=== PATIENT | female | born 1940 | race Two or more races ===

== ENCOUNTER → 2025-04-06 | Outpatient (CLI) | payer MEDICARE, BC, SELFPAY ==
[2025-04-06 10:32] LABS: Glucose Estimated Average 148 mg/dL (80-131); Hemoglobin A1C 6.8 % Hgb (4.8-6.0)
== END | disposition home or self-care (01) ==
LOC: COPL 08:47
PROVIDERS: PCP Family Medicine; Referring Provider Family Medicine; Visit Provider Family Medicine
DX: E11.65 Type 2 diabetes mellitus with hyperglycemia (principal)
CPT/HCPCS: 36415; 83036

== ENCOUNTER → 2025-04-08 | Outpatient (CLI) | payer MEDICARE, BC, SELFPAY ==
--- NOTE | 2025-04-08 10:30 | XR_ITS ---
Examination: CT brain head without contrast. 2-D sagittal coronal reconstructions Date and time of exam:April 08, 2025 1026 hours COMPARISON: January 13, 2024 INDICATIONS: Headache dizziness beginning several months ago CTDI: vol (mGy):54.7 DLP: (mGycm):1020 Technique: Multiple CT axial sections of the brain have been obtained, 5 mm slice thickness. Contrast has not been administered. 2-D sagittal, coronal reconstructions have been obtained Low dose protocols were performed. One or more of the following dose reduction techniques were used; automated exposure control, adjustment of the mA and/or KV according to patient size, use of iterative reconstruction technique. Findings: No significant ventricular enlargement. Intra-axial or extra-axial hemorrhage density is not seen. No mass effect or midline shift Basal cisterns are not remarkable. Fourth ventricle is midline. Cranial vault intact. Impression: Negative for acute hemorrhage, mass effect or midline shift Advise clinical correlation follow-up accordingly
== END | disposition home or self-care (01) ==
LOC: CCTX 09:33
PROVIDERS: PCP Family Medicine; Referring Provider Psychiatry & Neurology Neurology; Visit Provider Psychiatry & Neurology Neurology
DX: R51.9 Headache, unspecified (principal); R42 Dizziness and giddiness; F07.81 Postconcussional syndrome
CPT/HCPCS: 70450

== ENCOUNTER → 2025-05-04 | Outpatient (CLI) | payer MEDICARE, BC, SELFPAY ==
--- NOTE | 2025-05-04 10:45 | XR_ITS ---
Examination: Screening digital mammography, bilateral Computer aided detection 3-D breast Tomosynthesis, bilateral Date and time of exam: May 04, 2025 1046 hours Compared to mammograms dating to November 09, 2009 Indication: Screening Technique: Nonmagnified MLO, CC views of the breasts to been obtained, reconstructed from 3-D Tomosynthesis images. R2 computer aided detection program utilized for evaluation of suspicious masses and/or abnormal calcifications. 3-D Tomosynthesis images obtained. Findings: Scattered areas of fibroglandular density Skin lesion inner left breast Benign calcifications. No interval suspicious masses Impression: BI-RADS category II: Benign Findings. Recommend 1 year follow-up mammogram.
== END | disposition home or self-care (01) ==
LOC: CDIM 10:26
PROVIDERS: Referring Provider Family Medicine; Visit Provider Family Medicine
DX: Z12.31 Encounter for screening mammogram for malignant neoplasm of breast (principal); R92.323 Mammographic fibroglandular density, bilateral breasts; L98.8 Other specified disorders of the skin and subcutaneous tissue; R92.1 Mammographic calcification found on diagnostic imaging of breast
CPT/HCPCS: 77063; 77067

== ENCOUNTER 2025-06-15 11:38 | Emergency (ER) | payer MEDICARE, BC, SELFPAY ==
[2025-06-15 11:47] VITALS: BP 165/77; PULSE 62; PULSE 85; RESP 16; RESP 18; TEMP 36.9; O2SAT 97; O2SAT 98; BMI 31.3
--- NOTE | 2025-06-15 13:44 | PD.EDRME ---
Rapid Medical Screening Exam RME Arrival date/time: 06/15/25 11:38 Chief Complaint: General Adult/Misc Complain Vital signs: Vital Signs Temperature 98.5 F 06/15/25 11:47 Pulse Rate 62 06/15/25 11:47 Respiratory Rate 18 06/15/25 11:47 Blood Pressure 165/77 H 06/15/25 11:47 Pulse Oximetry (%) 97 06/15/25 11:47 Oxygen Delivery Method Room Air 06/15/25 11:47 Pulse ox room air is 97%. Vital signs reviewed by provider: Yes RME Narrative: 84-year-old female sent by Dr. Guzman due to a headache with left and right ankle swelling. Pressure to her chest but no odell chest pain that radiates to her back. Also complains of a headache. This has been intermittent x 1 week.
--- NOTE | 2025-06-15 13:56 | EKG_ITS ---
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
[2025-06-15 14:20] LABS: Collection Type, Urine Clean Catch; Squamous Epithelial Cell,Urine 0 /hpf (0-5); WBC,Urine 0 /hpf (0-5)
[2025-06-15 14:21] LABS: Basophils # (Auto) 0.0 Thou/mm3 (0.0-0.2); Basophils % (Auto) 1 % (0-2.5); Eosinophils # (Auto) 0.2 Thou/mm3 (0.0-0.5); Eosinophils % (Auto) 2 % (0-10); Hematocrit 38.5 % (36.0-46.0); Hemoglobin 12.8 g/dL (12.0-16.0); Immature Granulocytes Auto 0.01 Thou/mm3 (0.00-0.00); Lymphocytes # (Auto) 2.5 Thou/mm3 (1.0-4.8); Lymphocytes % (Auto) 36 % (10-50); Mean Corpuscular HGB Conc 33.2 g/dl (31.0-37.0); Mean Corpuscular Hemoglobin 30.0 pg (25.0-35.0); Mean Corpuscular Volume 90 fL (80-100); Monocytes # (Auto) 0.4 Thou/mm3 (0.0-0.8); Monocytes % (Auto) 6 % (0-12); Neutrophils # (Auto) 3.9 Thou/mm3 (1.8-7.7); Neutrophils % (Auto) 55 % (37-80); Nucleated Red Blood Cell # 0.00 Thou/mm3 (0.00-0.00); Nucleated Red Blood Cell % 0 /100 WBC (0); Platelet Count 247 Thou/mm3 (140-440); RDW Standard Deviation 44.9 fL (36.4-46.3); Red Blood Count 4.27 Miln/mm3 (4.00-5.20); White Blood Count 7.0 Thou/mm3 (3.6-11.0)
[2025-06-15 14:24] LABS: Bilirubin,Urine Negative (Negative); Blood,Urine Negative (Negative); Clarity,Urine Clear (Clear/Hazy); Color,Urine Colorless (Lt Yel-Yel); Glucose, Urine Negative (Negative); Ketones,Urine Trace (Negative); Leukocyte Esterase,Urine Negative (Negative); Nitrite,Urine Negative (Negative); PH,Urine 7.0 (5.0-7.0); Protein,Urine Negative (Neg - Trace); RBC,Urine < 1 /hpf (0-3); Specific Gravity,Urine 1.012 (1.001-1.035); Urobilinogen,Urine Negative mg/dL (0.0-1.0)
[2025-06-15 14:31] LABS: Amphetamine/Methamp Scrn,U Negative (Negative); Barbiturate Screen,Urine Negative (Negative); Benzodiazepines Screen,Urine Negative (Negative); Benzoylecgonine Screen, Ur Negative (Negative); Fentanyl Screen,Urine Negative (Negative); Opiate Screen,Urine Negative (Negative); THC Screen,Urine Negative (Negative)
[2025-06-15 14:42] LABS: INR 1.1 (0.9-1.3); Partial Thromboplastin Time 26.6 Seconds (22.0-36.0); Prothrombin Time 11.5 Seconds (9.0-12.2)
[2025-06-15 14:44] LABS: B-Type Natriuretic Peptide 260 pg/mL (0-100)
[2025-06-15 14:56] LABS: Alanine Aminotransferase 9 U/L (10-49); Albumin, Serum 4.4 gm/dL (3.4-4.8); Albumin/Globulin Ratio 1.3 (1.2-2.2); Alkaline Phosphatase 81 U/L (46-116); Anion Gap 10 (7-16); Aspartate Amino Transferase 13 U/L (0-34); BUN/Creatinine Ratio 17 Ratio (12-20); Bilirubin,Total 0.7 mg/dL (0.3-1.2); Blood Urea Nitrogen 15 mg/dL (9-23); Calcium 9.2 mg/dL (8.3-10.6); Calcium (Corrected) 9.2 mg/dL (8.5-10.1); Carbon Dioxide 27.7 mMol/L (20.0-31.0); Chloride 104 mMol/L (98-107); Creatinine (Component) 0.9 mg/dL (0.6-1.3); Estimated Creatinine Clearance 52.9 mL/min (>60); Globulin 3.4 gm/dL (2.3-3.5); Glucose 122 mg/dL (74-106); LDH (Lactate Dehydrogenase) 181 U/L (120-246); Magnesium 1.7 mg/dL (1.6-2.6); Osmolality,Calculated 284 (275-295); Potassium 3.9 mMol/L (3.4-5.1); Sodium 142 mMol/L (136-145); Total Protein 7.8 gm/dL (5.7-8.2); Troponin I < 0.020 ng/mL (0.0-0.045); eGFR > 60 See Note
[2025-06-15 20:12] VITALS: BP 161/54; PULSE 66; RESP 18; TEMP 36.7; O2SAT 99
--- NOTE | 2025-06-15 20:14 | EDNOTE_ITS ---
ED General RME/HPI General Chief complaint: General Adult/Misc Complain Stated complaint: HIGH BP Source: patient Arrival date/time: 06/15/25 11:38 Limitations: no limitations RME / HPI RME / HPI narrative: 84-year-old female with history of hypertension, anxiety, was establishing care with a new PCP today and was found to be hypertensive and sent here. She has ongoing lower leg edema. She denies any current chest pain or shortness of breath. She has had no syncope, nausea, or vomiting. In clinic today her blood pressure was found to be 172/81 and 190/80. She states the last few months she has had difficulty swallowing chicken and beef. She has also had increased lower leg edema, she is currently sleeping in a recliner. She states she was given a prescription for furosemide but has not started this. Related Data Home Medications ?Medication ?Instructions ?Recorded ?Confirmed alprazolam 0.25 mg tablet 0.25 mg PO BID PRN ANXIETY # 0 tabs 06/29/15 lisinopril 10 mg tablet 10 mg PO HS #0 tabs 06/29/15 polyethylene glycol 3350 17 gram 1 pkt PO QDAY ##0 05/08 oral powder packet (Miralax) Allergies Allergy/AdvReac Type Severity Reaction Status Date / Time iodine Allergy Severe HIVES Verified 01/13/24 09:55 Sulfa (Sulfonamide Allergy Severe HIVES Verified 01/13/24 09:55 Antibiotics) Review of Systems Review of Systems Systems Reviewed: All systems reviewed, normal except as documented ED Exam General Limitations: Present no limitations General appearance: Present alert and in no apparent distress Head Head exam: Present atraumatic Eye Eye exam: Present normal appearance, PERRL and EOMI ENT ENT exam: Present normal exam, normal oropharynx and mucous membranes moist Neck Neck exam: Present normal inspection, full ROM and trachea midline Chest Chest inspection: Present normal inspection and symmetric chest wall rise Respiratory Respiratory exam: Present normal lung sounds bilaterally Cardiovascular Cardiovascular exam: Present regular rate and normal rhythm Abdominal Exam Abdominal exam: Present soft Extremities Exam Extremities exam: Present normal inspection, full ROM and pedal edema (+4, bilateral, pretibial edema) Back Exam Back exam: Present normal inspection and full ROM Neurological Exam Neurological exam: Present alert and oriented X3 Psychiatric Psychiatric exam: Present normal affect and normal mood Skin Skin exam: Present warm, dry, intact and normal color Course Quality Measures none Orders Category Date Time Status EKG (ED ONLY) *Do not use* NOW Care 06/15/25 13:56 Completed EKG (ED Only) Stat Exams 06/15/25 13:56 Draft B-Type Natriuretic Peptide Stat Lab 06/15/25 14:09 Completed CBC Stat Lab 06/15/25 14:09 Completed Comprehensive Metabolic Panel Stat Lab 06/15/25 14:09 Completed Drug Screen,Urine Stat Lab 06/15/25 14:07 Completed LDH (Lactate Dehydrogenase) Stat Lab 06/15/25 14:09 Completed Magnesium Stat Lab 06/15/25 14:09 Completed Partial Thromboplastin Time Stat Lab 06/15/25 14:09 Completed Prothrombin Time with INR Stat Lab 06/15/25 14:09 Completed Troponin I Stat Lab 06/15/25 14:09 Completed Urinalysis Stat Lab 06/15/25 14:07 Completed Vital Signs Vital signs: Vital Signs Temperature 98.5 F 06/15/25 11:47 Pulse Rate 62 06/15/25 11:47 Respiratory Rate 18 06/15/25 11:47 Blood Pressure 165/77 H 06/15/25 11:47 Pulse Oximetry (%) 97 06/15/25 11:47 Oxygen Delivery Method Room Air 06/15/25 11:47 Discharge Plan Plan Patient Disposition: HOME (Self Care) Patient condition on transfer: Stable Prescriptions/Referrals Prescriptions/Med Rec: No Action polyethylene glycol 3350 [Miralax] 12 EA powder in packet 1 pkt PO QDAY Qty: 0 lisinopril 10 MG tablet 10 mg PO HS Qty: 0 alprazolam 0.25 MG tablet 0.25 mg PO BID PRN (Reason: ANXIETY) Qty: 0 Referrals: Seth Chowdhury MD [Physician] - In 1 week Glenn Cardozo MD [Primary Care Provider] - In 1 week Problem List Clinical Impression: Edema, Benign essential HTN, Dysphagia Patient/Caregiver Discharge Instructions Education Materials: Controlling High Blood Pressure, Taking a Diuretic, Hypertension and Kidney Disease, Dysphagia Diet- Managing Foods Additional Instructions: -Start sleeping in your bed with your legs elevated. -Use the furosemide that your doctor prescribed. -Contact GI to schedule a close follow up appoitment, avoid chicken and beef until cleared by GI. -Return here for any emergent changes. Print Language: Greenlandic Stand Alone Forms: [employer] Award Info., Patient Portal Info Letter MDM Narrative MDM hospital course: 84-year-old female with history of hypertension, anxiety, was establishing care with a new PCP today and was found to be hypertensive and sent here. She has ongoing lower leg edema. She denies any current chest pain or shortness of elizabeth th. She has had no syncope, nausea, or vomiting. In clinic today her blood pressure was found to be 172/81 and 190/80. She states the last few months she has had difficulty swallowing chicken and beef. She has also had increased lower leg edema, she is currently sleeping in a recliner. She states she was given a prescription for furosemide but has not started this. On exam, patient is nontoxic-appearing. Her vital signs are stable. CBC is unremarkable. Her metabolic panel is unremarkable with exception of a mildly elevated glucose at 122. Her BNP is 260. EKG reveals sinus bradycardia at [address] changes or dynamic T waves. Clinical Information Provided by patient and family Medical Records Reviewed PCP / Clinic Meds/Rx Considered, not Ordered None Labs/Rad/Tests considered, not Ordered None Chronic Illness/Social Conditions which may negatively complicate care or outcome(s)-explain: other (Patient has hypertension, fibromyalgia, and anxiety) EKG EKG not done (Sinus bradycardia with no ST changes or dynamic T waves.) Lab Interpretation Labs: none (Mild hyperglycemia is present, her BNP is elevated at 260.) Imaging Imaging interpretation: none Medication Administration(s) none Dispositon Disposition: Discharge Home
== END 2025-06-15 20:35 | disposition home or self-care (01) ==
PROVIDERS: Physician Assistant; Emergency Provider Emergency Medicine; PCP Internal Medicine
DX: R60.0 Localized edema (principal); I10 Essential (primary) hypertension; R13.10 Dysphagia, unspecified; R00.1 Bradycardia, unspecified
CPT/HCPCS: 36415; 80053; 80307; 81001; 83615; 83735; 83880; 84484; 85025; 85610; 85730; 93005

== ENCOUNTER → 2025-06-15 | Outpatient (CLI) | payer MEDICARE, BC, SELFPAY ==
--- NOTE | 2025-06-15 09:59 | XR_ITS ---
Indication: PA lateral chest 2 views TECHNIQUE: Upright PA lateral chest 2 views Date and time: June 15, 2025 1009 hours Comparison October 07, 2022 INDICATIONS: Nausea beginning 3 days ago. FINDINGS: No significant cardiac enlargement No pneumonia or pulmonary edema Minor accentuation bronchovascular markings Prominent osteopenia IMPRESSION: Minor accentuation bronchovascular markings
[2025-06-15 11:14] LABS: Collection Type, Urine Clean Catch
[2025-06-15 11:38] LABS: Basophils # (Auto) 0.1 Thou/mm3 (0.0-0.2); Basophils % (Auto) 1 % (0-2.5); Eosinophils # (Auto) 0.2 Thou/mm3 (0.0-0.5); Eosinophils % (Auto) 3 % (0-10); Hematocrit 37.9 % (36.0-46.0); Hemoglobin 12.5 g/dL (12.0-16.0); Immature Granulocytes Auto 0.03 Thou/mm3 (0.00-0.00); Lymphocytes # (Auto) 2.3 Thou/mm3 (1.0-4.8); Lymphocytes % (Auto) 34 % (10-50); Mean Corpuscular HGB Conc 33.0 g/dl (31.0-37.0); Mean Corpuscular Hemoglobin 29.8 pg (25.0-35.0); Mean Corpuscular Volume 90 fL (80-100); Monocytes # (Auto) 0.5 Thou/mm3 (0.0-0.8); Monocytes % (Auto) 7 % (0-12); Neutrophils # (Auto) 3.8 Thou/mm3 (1.8-7.7); Neutrophils % (Auto) 56 % (37-80); Nucleated Red Blood Cell # 0.00 Thou/mm3 (0.00-0.00); Nucleated Red Blood Cell % 0 /100 WBC (0); Platelet Count 242 Thou/mm3 (140-440); RDW Standard Deviation 45.1 fL (36.4-46.3); Red Blood Count 4.20 Miln/mm3 (4.00-5.20); White Blood Count 6.9 Thou/mm3 (3.6-11.0)
[2025-06-15 11:39] LABS: Bilirubin,Urine Negative (Negative); Blood,Urine Negative (Negative); Clarity,Urine Clear (Clear/Hazy); Color,Urine Lt-Yellow (Lt Yel-Yel); Glucose, Urine Negative (Negative); Ketones,Urine Negative (Negative); Leukocyte Esterase,Urine Negative (Negative); Nitrite,Urine Negative (Negative); PH,Urine 6.0 (5.0-7.0); Protein,Urine Negative (Neg - Trace); RBC,Urine 5 /hpf (0-3); Specific Gravity,Urine 1.011 (1.001-1.035); Squamous Epithelial Cell,Urine < 1 /hpf (0-5); Urobilinogen,Urine Negative mg/dL (0.0-1.0); WBC,Urine 1 /hpf (0-5)
[2025-06-15 11:48] LABS: B-Type Natriuretic Peptide 221 pg/mL (0-100)
[2025-06-15 11:53] LABS: Glucose Estimated Average 160 mg/dL (80-131); Hemoglobin A1C 7.2 % Hgb (4.8-6.0)
[2025-06-15 11:59] LABS: Creatinine MALB Rnd Ur 42 mg/dL (30-125); Microalbumin Creat Ratio 10 mg/gCrea (<30); Microalbumin, Random Urine 4 mg/L (0-300)
[2025-06-15 12:07] LABS: Vitamin B12 > 2000 pg/mL (211-911); Vitamin D 25 Hydroxy Total 29.9 ng/mL (7.3-40.2)
[2025-06-15 12:23] LABS: Alanine Aminotransferase 9 U/L (10-49); Albumin, Serum 4.4 gm/dL (3.4-4.8); Albumin/Globulin Ratio 1.3 (1.2-2.2); Alkaline Phosphatase 79 U/L (46-116); Anion Gap 11 (7-16); Aspartate Amino Transferase 13 U/L (0-34); BUN/Creatinine Ratio 20 Ratio (12-20); Bilirubin,Total 0.7 mg/dL (0.3-1.2); Blood Urea Nitrogen 20 mg/dL (9-23); Calcium 8.9 mg/dL (8.3-10.6); Calcium (Corrected) 8.9 mg/dL (8.5-10.1); Carbon Dioxide 28.2 mMol/L (20.0-31.0); Cardiac Risk Estimate 3.3 RATIO (3.7-5.6); Chloride 104 mMol/L (98-107); Cholesterol 197 mg/dL (132-200); Creatinine (Component) 1.0 mg/dL (0.6-1.3); Globulin 3.3 gm/dL (2.3-3.5); Glucose 144 mg/dL (74-106); HDL Cholesterol 59 mg/dL (40-60); LDL Cholesterol,Calculated 117 mg/dL (0-130); Osmolality,Calculated 290 (275-295); Potassium 4.3 mMol/L (3.4-5.1); Sodium 143 mMol/L (136-145); Thyroid Stimulating Hormone 1.69 uIU/mL (0.55-4.78); Total Protein 7.7 gm/dL (5.7-8.2); Triglycerides 104 mg/dL (30-150); Uric Acid 4.4 mg/dL (3.1-7.8); eGFR 56 See Note
== END | disposition home or self-care (01) ==
LOC: CDIM 09:37 → COPL 10:20
PROVIDERS: PCP Internal Medicine; Referring Provider Internal Medicine; Visit Provider Radiology Diagnostic Radiology
DX: I11.0 Hypertensive heart disease with heart failure (principal); I50.21 Acute systolic (congestive) heart failure; Z00.00 Encounter for general adult medical examination without abnormal findings; E78.5 Hyperlipidemia, unspecified; E11.9 Type 2 diabetes mellitus without complications; D51.9 Vitamin B12 deficiency anemia, unspecified; E55.9 Vitamin D deficiency, unspecified
CPT/HCPCS: 36415; 71046; 80053; 80061; 81001; 82043; 82306; 82570; 82607; 83036; 83880; 84443; 84550; 85025

== ENCOUNTER → 2025-09-30 | Outpatient (CLI) | payer MEDICARE, BC, SELFPAY ==
[2025-09-30 10:14] LABS: Collection Type, Urine Clean Catch
[2025-09-30 10:35] LABS: Basophils # (Auto) 0.1 Thou/mm3 (0.0-0.2); Basophils % (Auto) 1 % (0-2.5); Eosinophils # (Auto) 0.2 Thou/mm3 (0.0-0.5); Eosinophils % (Auto) 4 % (0-10); Hematocrit 36.0 % (36.0-46.0); Hemoglobin 11.6 g/dL (12.0-16.0); Immature Granulocytes Auto 0.01 Thou/mm3 (0.00-0.00); Lymphocytes # (Auto) 2.3 Thou/mm3 (1.0-4.8); Lymphocytes % (Auto) 36 % (10-50); Mean Corpuscular HGB Conc 32.2 g/dl (31.0-37.0); Mean Corpuscular Hemoglobin 29.9 pg (25.0-35.0); Mean Corpuscular Volume 93 fL (80-100); Monocytes # (Auto) 0.5 Thou/mm3 (0.0-0.8); Monocytes % (Auto) 8 % (0-12); Neutrophils # (Auto) 3.3 Thou/mm3 (1.8-7.7); Neutrophils % (Auto) 52 % (37-80); Nucleated Red Blood Cell # 0.00 Thou/mm3 (0.00-0.00); Nucleated Red Blood Cell % 0 /100 WBC (0); Platelet Count 262 Thou/mm3 (140-440); RDW Standard Deviation 48.6 fL (36.4-46.3); Red Blood Count 3.88 Miln/mm3 (4.00-5.20); White Blood Count 6.3 Thou/mm3 (3.6-11.0)
[2025-09-30 10:41] LABS: Bacteria,Urine Rare; Bilirubin,Urine Negative (Negative); Blood,Urine Negative (Negative); Clarity,Urine Clear (Clear/Hazy); Color,Urine Lt-Yellow (Lt Yel-Yel); Glucose, Urine Negative (Negative); Ketones,Urine Negative (Negative); Leukocyte Esterase,Urine Negative (Negative); Nitrite,Urine Negative (Negative); PH,Urine 6.0 (5.0-7.0); Protein,Urine Negative (Neg - Trace); RBC,Urine 4 /hpf (0-3); Specific Gravity,Urine 1.014 (1.001-1.035); Squamous Epithelial Cell,Urine 1 /hpf (0-5); Urobilinogen,Urine Negative mg/dL (0.0-1.0); WBC,Urine 1 /hpf (0-5)
[2025-09-30 10:49] LABS: Glucose Estimated Average 143 mg/dL (80-131); Hemoglobin A1C 6.6 % Hgb (4.8-6.0)
[2025-09-30 10:51] LABS: Creatinine MALB Rnd Ur 53 mg/dL (30-125); Microalbumin Creat Ratio 13 mg/gCrea (<30); Microalbumin, Random Urine 7 mg/L (0-300)
[2025-09-30 11:12] LABS: Alanine Aminotransferase 9 U/L (10-49); Albumin, Serum 4.3 gm/dL (3.4-4.8); Albumin/Globulin Ratio 1.5 (1.2-2.2); Alkaline Phosphatase 83 U/L (46-116); Anion Gap 9 (7-16); Aspartate Amino Transferase 12 U/L (0-34); BUN/Creatinine Ratio 20 Ratio (12-20); Bilirubin,Total 0.6 mg/dL (0.3-1.2); Blood Urea Nitrogen 18 mg/dL (9-23); Calcium 9.0 mg/dL (8.3-10.6); Calcium (Corrected) 9.0 mg/dL (8.5-10.1); Carbon Dioxide 28.4 mMol/L (20.0-31.0); Cardiac Risk Estimate 3.1 RATIO (3.7-5.6); Chloride 107 mMol/L (98-107); Cholesterol 186 mg/dL (132-200); Creatinine (Component) 0.9 mg/dL (0.6-1.3); Free T4 (Free Thyroxine) 1.28 ng/dL (0.89-1.76); Globulin 2.8 gm/dL (2.3-3.5); Glucose 142 mg/dL (74-106); HDL Cholesterol 60 mg/dL (40-60); LDL Cholesterol,Calculated 109 mg/dL (0-130); Magnesium 2.1 mg/dL (1.6-2.6); Osmolality,Calculated 290 (275-295); Potassium 4.5 mMol/L (3.4-5.1); Sodium 144 mMol/L (136-145); Thyroid Stimulating Hormone 2.11 uIU/mL (0.55-4.78); Total Protein 7.1 gm/dL (5.7-8.2); Triglycerides 87 mg/dL (30-150); eGFR > 60 See Note
[2025-09-30 11:13] LABS: Vitamin B12 > 2000 pg/mL (211-911); Vitamin D 25 Hydroxy Total 29.7 ng/mL (7.3-40.2)
== END | disposition home or self-care (01) ==
LOC: COPL 08:50
PROVIDERS: PCP Internal Medicine; Referring Provider Internal Medicine Cardiovascular Disease; Visit Provider Internal Medicine Cardiovascular Disease
DX: E78.5 Hyperlipidemia, unspecified (principal); E11.9 Type 2 diabetes mellitus without complications; I10 Essential (primary) hypertension
CPT/HCPCS: 36415; 80053; 80061; 81001; 82043; 82306; 82570; 82607; 83036; 83735; 84439; 84443; 85025